=== PATIENT | male | born 1970 | race Asian ===

== ENCOUNTER 2025-09-15 22:08 | Emergency (ER) | payer BC ==
[~2025-09-15] VITALS: Ht 162.6 cm; Wt 70.0 kg
[2025-09-15 22:10] VITALS: TEMP 97.9
[2025-09-15 22:45] LABS: APPEARANCE,URINE CLEAR (CLEAR); GLUCOSE, URINE (UA) NEGATIVE (NEGATIVE); LEUKOCYTE ESTERASE ,URINE NEGATIVE (NEGATIVE); NITRATE,URINE NEGATIVE (NEGATIVE); OCCULT BLOOD,URINE NEGATIVE (NEGATIVE); SPECIFIC GRAVITIY, URINE 1.010 (1.003-1.030)
[2025-09-15 23:03] LABS: CALCIUM, TOTAL 8.2 mg/dL (8.8-10.5); CREATININE 0.93 mg/dL (0.60-1.30); GLOMERULAR FILTR. RATE CALC > 60 mL/min (>60); GLUCOSE,RANDOM 114 mg/dL (70-110); SODIUM SERUM 141 mmol/L (136-145); UREA NITROGEN, BLOOD 18 mg/dL (7-18)
[2025-09-15 23:04] LABS: WHITE BLOOD COUNT (AUTO) 7.7 K/uL (4.5-11.0)
[2025-09-15 23:11] LABS: PLATELET COUNT (AUTO) 279 K/uL (150-450); RED BLOOD CELL COUNT(AUTO) 6.80 MIL/uL (4.50-5.90); RED CELL DISTRIBUTION WIDTH 15.5 % (11.5-14.5)
[2025-09-15 23:11] LABS: COVID AG,FIA SOURCE NASAL SWAB
[2025-09-15 23:28] LABS: RBC MORPHOLOGY COMMENT ABNORMAL RBC MORPH
[2025-09-15 23:35] LABS: SARS-COV2 (COVID) ANTIGEN,FIA Negative (Negative)
[2025-09-15 23:36] LABS: INFLUENZA TYPE A NEGATIVE FOR TYPE A (NEGATIVE); INFLUENZA TYPE B NEGATIVE FOR TYPE B (NEGATIVE)
[2025-09-16] MEDS: OXYMETAZOLINE HCL 0.05% 15 ML NASAL SPRAY NASAL ONE (00:59)
[2025-09-16 01:09] VITALS: BP 143/93; PULSE 81; RESP 16; O2SAT 99
== END 2025-09-16 01:38 | disposition home or self-care (01) ==
LOC: EMS 22:10
DX: R09.81 Nasal congestion (principal); I10 Essential (primary) hypertension; Z20.822 Contact with and (suspected) exposure to COVID-19
CPT/HCPCS: 80048; 81001; 85025; 87804; 93005; 99284